=== PATIENT | female | born 1980 ===

== ENCOUNTER 2021-03-26 07:17 | Day surgery (SDC) | payer OTHER ==
[~2021-03-26 07:17] MED LIST: LACTATED RINGERS 1,000 ML ONE
--- NOTE | 2021-03-26 07:20 | Short Stay Summary ---
Short Stay Documentation Date of service: 03/26/21 Narrative H&P: 40-year-old with findings of vaginal cyst. The patient reports discomfort and dyspareunia. The mass has been present for several months without spontaneous resolution. The patient is elected for surgical management. - History Principal diagnosis: Vaginal cyst Past Medical History: hypothyroidism Past Surgical History: , Other (Ovarian cystectomy) Social history: - Allergies and Medications Current Medications: Allergies No Known Allergies Allergy (Verified 03/21/21 17:29) Home Medications Medication Instructions Recorded Confirmed Last Taken Type Ergocalciferol [Vitamin D2] 1 cap PO QWEEK 03/21/21 03/21/21 Unknown History Norgestimate-Ethinyl Estradiol 1 tab PO DAILY 03/21/21 03/21/21 Unknown History [Sprintec 28 Day Tablet] - Physical exam General appearance: no acute distress Integumentary: no rash HEENT: Atraumatic Lungs: Clear to auscultation Breasts: deferred Heart: Regular rate Gastrointestinal: normal Female Genitourinary: deferred Rectal Exam: deferred - Brief post op/procedure progress note Date of procedure: 03/26/21 Pre-op diagnosis: Vaginal cyst Post-op diagnosis: same Procedure: Excision of vaginal cyst Anesthesia: SANTIAGO Surgeon: SANDY MARTINEZ Estimated blood loss: other (100 mL) Pathology: list (Vaginal cyst) Specimen disposition: to lab Condition: stable - Hospital course Hospital course: The patient was admitted the day of surgery underwent excision of a vaginal cyst. Please see operative note for details of surgery. Her postoperative course was uneventful. - Disposition Condition at discharge: Good Disposition: 01 HOME / SELF CARE / HOMELESS Short Stay Discharge Plan Activity: other (Pelvic rest for 4 weeks) Diet: regular Additional Instructions: Patient should follow up with Dr. Martinez in 2 weeks Take Colace if needed to maintain soft bowel movements Pelvic rest for 4 weeks Prescriptions: Docusate Sodium [Colace] 100 mg PO BID PRN #60 capsule PRN Reason: Constipation
[2021-03-26] MEDS ORDERED: HYDROmorphone 1 MG/1 ML INJ IV PRN ×2 (07:25)
--- NOTE | 2021-03-26 07:25 | Anesthesia Day of Surgery ---
Anesthesia Day of Surgery - Day of Surgery Patient Examined: Yes Patient H&P Reviewed: Yes Patient is NPO: Yes
--- NOTE | 2021-03-26 07:26 | Anesthesia Consultation ---
Anesthesia Consult and Med Hx Date of service: 03/26/21 - Airway Anesthetic Teeth Evaluation: Good ROM Head & Neck: Adequate Mental/Hyoid Distance: Adequate Mallampati Class: Class II Intubation Access Assessment: Good - Pre-Operative Health Status ASA Pre-Surgery Classification: ASA1 Proposed Anesthetic Plan: General - Pulmonary Hx Smoking: No Hx Asthma: No COPD: No Hx Pneumonia: No - Cardiovascular System Hx Hypertension: No - Central Nervous System Hx Seizures: No Hx Psychiatric Problems: No - Endocrine Hx Renal Disease: No Hx End Stage Renal Disease: No Hx Thyroid Disease: Yes Hx Hypothyroidism: Yes (mild-no rx) Hx Hyperthyroidism: No - Hematic Hx Anemia: No Hx Sickle Cell Disease: No - Other Systems Hx Alcohol Use: No Hx Cancer: No - Additional Comments Anesthesia Medical History Comments: present at bedside to translate
[2021-03-26] MEDS ORDERED: ceFAZolin/Water 2 GM/20 ML 2 GM/20 ML SYRINGE IV ONE (07:27)
[2021-03-26] MEDS ORDERED: ePHEDrine SULFATE 50 MG/1 ML INJ ONE (07:28)
[2021-03-26] MEDS ORDERED: ONDANSETRON 4 MG/2 ML INJ IV PRN (07:30)
[2021-03-26] MEDS ORDERED: LACTATED RINGERS 1,000 ML IV SCH (07:30)
[2021-03-26] MEDS ORDERED: PHENYLEPHRINE/NS 1,000 MCG/10 ML SYRINGE (OR USE) IV ONE (07:31)
[2021-03-26] MEDS ORDERED: LIDOCAINE MPF (2%) 20 MG/1 ML VIAL 5 ML ONE (07:31)
[2021-03-26] MEDS ORDERED: dexAMETHasone 20 MG/5 ML VIAL ONE (07:31)
[2021-03-26] MEDS ORDERED: GLYCOPYRROLATE 0.4 MG/2 ML INJ ONE (07:31)
[2021-03-26] MEDS ORDERED: SUCCINYLCHOLINE CHLORIDE 200 MG/10 ML INJ MDV ONE (07:31)
[2021-03-26] MEDS ORDERED: ONDANSETRON 4 MG/2 ML INJ ONE (07:31)
[2021-03-26] MEDS ORDERED: propofoL 200 MG/20 ML VIAL IV ONE (07:32)
[2021-03-26] MEDS ORDERED: fentaNYL 100 MCG/2 ML INJ ONE (07:32)
[2021-03-26] MEDS ORDERED: MIDAZOLAM 2 MG/2 ML INJ ONE (07:39)
[2021-03-26] MEDS ORDERED: MIDAZOLAM 2 MG/2 ML INJ IV SCH (07:40)
[2021-03-26] MEDS ORDERED: ceFAZolin/Water 2 GM/20 ML 2 GM/20 ML SYRINGE IV NR (08:00)
[2021-03-26] MEDS ORDERED: LIDOCAINE 1%/EPINEPHRINE 1:100,000 VIAL (20 ML) INFILTRATI ONE ×2 (08:12→08:27)
[2021-03-26] MEDS ORDERED: SODIUM CHLORIDE 0.9% IRR 1,500 ML BOTTLE IR ONE (08:27)
--- NOTE | 2021-03-26 08:50 | Operative Report ---
Operative Report Operative Report: Date of procedure: March 26, 2021 Pre-operative diagnosis: Vaginal cyst Post-operative diagnosis: Same as above Procedure name(s): Excision of vaginal cyst Surgeon: Wen Howell M.D. Reimbursement Rep: Estimated blood loss: 100 mL Anesthesia: General endotracheal anesthesia Findings 3 cm mobile cyst in the posterior aspect of the introitus of the vagina Indication: 40-year-old -0-2-4 with findings of a persistent vaginal cyst. The patient had attempted conservative management without resolution in the mass. Procedure The patient was taken to the operating room. A timeout was performed that identified the patient and the correct procedure. The patient was placed under general tracheal anesthesia without complication. She is prepped and draped in a normal sterile fashion. Patient was placed in high lithotomy position. Lidocaine with epinephrine 10 cc were injected into the vaginal mucosa. An incision was made in the posterior aspect of the vagina with the scalpel. The vaginal cyst was undermined with the Metzenbaum scissors. Incidental cystotomy was performed during the extraction of the cyst. The fluid was of a chocolate thick consistency potentially consistent with an endometrioma. The remainder of the cyst wall was then excised. The nondominant hand of the surgeon's finger was placed in the patient's rectum. There did not appear to be any communication between the rectum and the vaginal vault. The connective tissue was reapproximated with 3-0 Vicryl in a running fashion. An additional imbricating stitch of the vaginal mucosa was reapproximated with 2-0 Vicryl in a running fashion. The anal sphincter remained intact. The surgical site was he mostatic at the conclusion of the procedure. The patient was then successfully extubated. All sponge laps and needle counts were correct x2. The patient was taken to the recovery room in stable condition.
[2021-03-26 10:18] VITALS: BP 105/52
--- NOTE | 2021-03-26 14:23 | Post Anesthesia Evaluation ---
- Post Anesthesia Evaluation Patient Participated: Yes Airway Patent: Yes Stable Respiratory Function: Yes Nausea/Vomiting: No Temp > 96.8F: Yes Pain Manageable: Yes Adequeate Hydration: Yes Anesthesia Complications: No Block Receding Appropriately: Not Applicable Patient on Ventilator: No
== END 2021-03-26 10:00 | disposition home or self-care (01) ==
LOC: OR 07:17
PROVIDERS: ATTEND Obstetrics & Gynecology
DX: N89.8 Other specified noninflammatory disorders of vagina (principal); E03.9 Hypothyroidism, unspecified; Z79.899 Other long term (current) drug therapy; Z98.890 Other specified postprocedural states; Z20.822 Contact with and (suspected) exposure to COVID-19
CPT/HCPCS: 57135; 81025; 88305; 88312; J0330; J0690; J1100; J1815; J2250; J2370; J2405; J2704; J3010; J3490; J7120; U0003; 88304; 88313